=== PATIENT | female | born 1995 | race Caucasian/White ===

== ENCOUNTER 2023-10-11 00:50 | Emergency (ER) | payer OTHER ==
[2023-10-11 00:58] VITALS: BMI 35.6
[2023-10-11 01:22] VITALS: BP 117/75; PULSE 74; RESP 18; TEMP 98.6
== END 2023-10-11 01:40 | disposition home or self-care (01) ==
LOC: FER 00:50
DX: H92.01 Otalgia, right ear (principal); H60.331 Swimmer's ear, right ear; H66.91 Otitis media, unspecified, right ear
CPT/HCPCS: 99283-25